=== PATIENT | female | born 1970 | race African-American/Black ===

== ENCOUNTER 2018-04-01 11:07 | Emergency (ER) | payer SELFPAY ==
[~2018-04-01] VITALS: Ht 175.3 cm; Wt 80.3 kg
[2018-04-01 11:15] VITALS: BP 150/80
[2018-04-01 15:15] VITALS: BP 136/83
--- NOTE | 2018-04-02 06:52 | Emergency Room Report ---
History of Present Illness General Chief Complaint: Behavioral Complaint Source: Patient Present Illness HPI 48-year-old female presents ED for evaluation. Patient brought in by EMS for behavioral concern. EMS states that somebody called 911 stating that the patient posted on Facebook that she was going to hurt herself. Patient arrives upset. Denies posting that she will hurt herself. States that she was going to be kicked out of her living situation and be homeless. States that she posted something that stated her frustration. Denies any suicidal or homicidal ideation. Denies hearing voices. Denies depression. Denies alcohol or drug use. No other aggravating or relieving factors. Denies any other associated symptoms Allergies: Coded Allergies: ASPIRIN (Verified Allergy, Unknown, 04/01/18) Patient History Past Medical History: none Past Surgical History: none Pertinent Family History: none Social History: Denies: smoking, alcohol use, drug use Last Menstrual Period: 03/27/18 Now: No Immunizations: UTD Reviewed Nursing Documentation: PMH: Agreed; PSxH: Agreed Nursing Documentation-PMH Past Medical History: No History, Except For Review of Systems All Other Systems: negative except mentioned in HPI Physical Exam Vital Signs Date Time Temp Pulse Resp B/P (MAP) Pulse Ox O2 Delivery O2 Flow Rate FiO2 04/01/18 10:49 98.6 110 16 150/80 100 Room Air 98.6 Sp02 EP Interpretation: reviewed, normal General Appearance: no apparent distress, alert, GCS 15, non-toxic Head: normocephalic, atraumatic Eyes: bilateral eye normal inspection, bilateral eye PERRL ENT: hearing grossly normal, normal pharynx, no angioedema, normal voice Neck: full range of motion, supple/symm/no masses Respiratory: chest non-tender, lungs clear, normal breath sounds, speaking full sentences Cardiovascular #1: regular rate, rhythm, no edema Cardiovascular #2: 2+ carotid (R), 2+ carotid (L), 2+ radial (R), 2+ radial (L) , 2+ dorsalis pedis (R), 2+ dorsalis pedis (L) Gastrointestinal: normal bowel sounds, non tender, soft, non-distended, no guarding, no rebound Rectal: deferred Genitourinary: normal inspection, no CVA tenderness Musculoskeletal: back normal, gait/station normal, normal range of motion, non- tender Neurologic: alert, oriented x3, responsive, motor strength/tone normal, sensory intact, speech normal Psychiatric: judgement/insight normal, memory normal, mood/affect normal, no suicidal/homicidal ideation, anxious Reflexes: 3+ bicep (R), 3+ bicep (L), 3+ tricep (R), 3+ tricep (L), 3+ knee (R) , 3+ knee (L) Skin: normal color, no rash, warm/dry, well hydrated Lymphatic: no adenopathy Medical Decision Making Diagnostic Impression: Primary Impression: Behavioral change ER Course Hospital Course 48 yo F presents to ED for questionable report of suicidal ideation Clinical course Patient placed on stretcher. Initial history, physical exam reveals middle- aged female in no acute distress. Patient appears anxious but is maintaining good eye contact. Not tearful. States that she regrets posting anything on Facebook We reviewed patient's patient which did not show any evidence of a post suggesting SI. Patient states it was a life E which has since immediately deleted. However I do not suspect SI or HI in this patient I believe patient is frustrated with her living situation and the fact that she does not have a job. Patient spoke to social work professor. orchid worker agrees that patient is not a danger to herself or others. We will provide patient with housing resources Diagnosis - behavioral change stable and discharged with housing resources. Followup with PMD. Return to ED if symptoms recur or worsen Last Vital Signs Date Time Temp Pulse Resp B/P (MAP) Pulse Ox O2 Delivery O2 Flow Rate FiO2 04/01/18 15:15 98.6 16 136/83 100 Room Air 98.6 04/01/18 10:49 110 Status: improved Disposition: HOME, SELF-CARE Condition: Stable Referrals: NOT CHOSEN IPA/,REFERRING (PCP) Patient Instructions: Self-Destructive Behavior Carlos Borden MD Apr 02, 2018 06:52
== END 2018-04-01 15:15 | disposition home or self-care (01) ==
LOC: EDBD 11:07 → EMR 12:46
DX: R45.851 Suicidal ideations (principal); Z88.6 Allergy status to analgesic agent
CPT/HCPCS: 99283